=== PATIENT | male | born 2000 | race American Indian/Alaskan Native ===

== ENCOUNTER 2021-05-06 00:34 | Emergency (ER) | payer OTHER ==
[2021-05-06 01:14] VITALS: BP 127/83
--- NOTE | 2021-05-06 02:08 | Emergency Department Report ---
Upper Extremity - HPI Chief Complaint: Extremity Injury, Upper Stated Complaint: WORK OUT STRAIN Time Seen by Provider: 05/06/21 01:41 Mechanism: Other (Excessive curling working out with heavy weights resulting in pain to the biceps and significant discomfort with full extension and attempts holding arm in a flexed position) Severity: moderate, severe Symptoms: Yes Pain with Movement, Yes Limited Range of Movement, Yes Swelling ED Review of Systems ROS: Stated complaint: WORK OUT STRAIN Other details as noted in HPI Comment: All other systems reviewed and negative ED Past Medical Hx - Past Medical History Previous Medical History?: No - Surgical History Past Surgical History?: No - Social History Smoking Status: Never Smoker Substance Use Type: None - Medications Home Medications: Home Medications Medication Instructions Recorded Confirmed Last Taken Type Cyclobenzaprine HCl [Flexeril 5 MG 5 mg PO QHS #10 tab 08/10/18 Unknown Rx TAB] Ibuprofen [Motrin] 600 mg PO Q8H #20 tablet 08/10/18 Unknown Rx Ketorolac [Toradol] 10 mg PO Q6H PRN #14 tablet 05/06/21 Unknown Rx Upper Extremity Exam - Exam General: Vital signs noted. No distress. Alert and acting appropriately. Head and Torso: No HEENT Abnormality, No Neck Tenderness, No Chest/Lungs Abnormality, No Abdominal Tenderness, No Back Tenderness Shoulder Exam: Yes Normal Range of Motion in Shoulder, No Shoulder Tenderness, No Clavicle Tenderness, No Shoulder Deformity, No AC Joint Tenderness Arm Exam: Yes Arm/Humerus Tenderness (Tenderness to the distal bicep region with some mild swelling noted. No ecchymosis.), No Arm Deformity (Decreased range of motion in the form of extension due to the discomfort) Elbow: No Elbow Tenderness, No Normal Range of Motion in Elbow, No Elbow Deformity Forearm: No Forearm Tenderness, No Forearm Deformity, No Pain with Pronation, No Pain with Supination Wrist: Yes Normal ROM in Wrist, No Wrist Tenderness, No Wrist Deformity, No Snuffbox Tenderness, No Pain with Axial Thumb Compression Hand: Yes Normal ROM in Digit(s), No Hand Tenderness, No Hand Deformity, No Digit Tenderness, No Digit(s) Deformity, No Tendon Dysfunction CMS Exam: No Broken Skin, No Normal Distal Pulses, No Normal Capillary Refill, No Normal Distal Sensation ED Course Vital Signs 05/06/21 01:02 Temperature 97.7 F Pulse Rate 85 Respiratory 16 Rate Blood Pressure 127/83 O2 Sat by Pulse 98 Oximetry Critical care attestation.: If time is entered above; I have spent that time in minutes in the direct care of this critically ill patient, excluding procedure time. ED Disposition Clinical Impression: Tendinopathy of left biceps tendon, Tendinopathy of right biceps tendon, Overexertion from lifting with repetitive movement Disposition: HOME / SELF CARE / HOMELESS Is pt being admited?: No Does the pt Need Aspirin: No Condition: Stable Instructions: Preventing Overuse Injuries, Adult, Distal Biceps Tendinitis Rehab-SportsMed, How to Use Cold Therapy Prescriptions: Ketorolac [Toradol] 10 mg PO Q6H PRN #14 tablet PRN Reason: Pain Referrals: [facility] [Provider Group] - 3-5 Days
== END 2021-05-06 03:06 | disposition home or self-care (01) ==
LOC: ED 00:34
DX: M75.21 Bicipital tendinitis, right shoulder (principal); M75.22 Bicipital tendinitis, left shoulder; X50.0XXA Overexertion from strenuous movement or load, initial encounter
CPT/HCPCS: 99281